=== PATIENT | male | born 1950 | race Caucasian/White ===

== ENCOUNTER 2024-08-14 02:17 | Emergency (ER) | payer BC, OTHER ==
[~2024-08-14] VITALS: Ht 162.6 cm; Wt 68.0 kg
[2024-08-14 02:36] VITALS: BP 156/74; PULSE 80; RESP 14; TEMP 98.4; O2SAT 92
[2024-08-14] MEDS: DexAMETHasone SOD PHOS 10MG/1ML VIAL INJ IM ONE (03:24)
--- NOTE | 2024-08-14 04:05 | DVH ---
CLINICAL INDICATION: 74 years old, Male; S/P FALL LOW BACK PAIN RADIATION LEFT LEG. TECHNIQUE: CT of the lumbar spine was performed without intravenous contrast. Sagittal and coronal re formatted images are provided. All CT scans at this medical facility are performed using dose modula tion techniques as appropriate to a performed exam including the following: Automated exposure contro l was utilized; adjustment of the MA and/or KV according to patient size; and use of iterative recons truction technique. COMPARISON: None CT Dose: CTDI volume is 32.6 mGy. Dose-length product is 1351. mGy*cm FINDINGS: There is levoscoliosis of the spine centered at L2-L3. There is a corpectomy cage L3-4 and ventral fu teri at L2-L4. There is no acute fracture. The vertebral bodies are normal in height. Multilevel inte rvertebral disc space narrowing and fusion of the posterior elements. There is no evidence of signifi cance spinal canal stenosis. Multilevel neural foraminal stenosis especially on the right at L4-L5 w here there is impingement of the exiting right L4 nerve root. There is moderate to severe right neura l foraminal stenosis L5-S1. There is a spinal stimulator noted. The prevertebral soft tissues are unremarkable. Paraspinal muscles are also within normal limits. Soft tissues swelling and stranding posterior to the coccyx. IMPRESSION: 1. No evidence of acute fracture in the lumbar spine. 2. Soft tissue swelling posterior to the coccyx.
[2024-08-14] MEDS ORDERED: METH4PAK PO (04:16)
--- NOTE | 2024-08-14 04:16 | ED.PDOC ---
Back pain HPI HPI Comments PT BIBA FOR FALL INJURY AT HOME YESTERDAY ACUTE ON CHRONIC LOWER BACK PAIN. PT STATED HE WAS STANDING, LEGS FELT WEAK, EXPERIENCED MECHANICAL FALL. PT STATED HE FELL ON HIS BOTTOM THEN ON HIS LEFT SIDE. PER PT, INTERNAL INFUSION PUMP FOR CHRONIC PAIN MANAGEMENT ON LLQ IN PLACE BUT NO RELIEF. DENIES LOSS OF BOWEL OR BLADDER CONTROL, SADDLE ANESTHESIA. 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 08/14/24 Information Source: Patient Mode of Arrival: EMS Past Medical History Past Medical History (Other): CHRONIC BACK PAIN Surgical History (Other): PAIN PUMP Family History Family History: Reviewed,noncontributory to illness Social History Smoker: Non-Smoker Alcohol: Denies ETOH Use Drugs: Denies Drug Use Constitutional: denies: chills, diaphoresis, fatigue, fever, malaise, sweats, weakness, others EENTM: denies: blurred vision, double vision, ear bleeding, ear discharge, ear drainage, ear pain, ear ringing, eye pain, eye redness, hearing loss, mouth pain, mouth swelling, nasal discharge, nose bleeding, nose congestion, nose pain, photophobia, tearing, throat pain, throat swelling, voice changes, others Respiratory: denies: cough, hemoptysis, orthopnea, SOB at rest, shortness of breath, SOB with excertion, stridor, wheezing, others Cardiovascular: denies: chest pain, dizzy spells, diaphoresis, Dyspnea on exertion, edema, irregular heart beat, left arm pain, lightheadedness, palpitations, PND, syncope, others Gastrointestinal: denies: abdomen distended, abdominal pain, blood streaked bowels, constipated, diarrhea, dysphagia, difficulty swallowing, hematemesis, melena, nausea, poor appetite, poor fluid intake, rectal bleeding, rectal pain, vomiting, others Genitourinary: denies: burning, dysuria, flank pain, frequency, hematuria, incontinence, penile discharge, penile sore, pain, testicle pain, testicle swelling, urgency, others Neurological: denies: dizziness, fainting, headache, left sided numbness, left sided weakness, numbness, paresthesia, pre-existing deficit, right sided numbness, right sided weakness, seizure, speech problems, tingling, tremors, weakness, others Musculoskeletal: reports: back pain; denies: gout, joint pain, joint swelling, muscle pain, muscle stiffness, neck pain, others Integumetry: denies: bruises, change in color, change in hair/nails, dryness, laceration, lesions, lumps, rash, wounds, others Allergic/Immunocompromised: denies: Difficulty Healing, Frequent Infections, Hives, Itching, others Hematologic/Lymphatic: denies: anemia, blood clots, easy bleeding, easy bruising, swollen glands, others Endocrine: denies: excessive hunger, excessive sweating, excessive thirst, excessive urination, flushing, intolerance to cold, intolerance to heat, unexplained weight gain, unexplained weight loss, others Psychiatric: denies: anxiety, bipolar disorder, depression, hopeless, panic disorder, schizophrenia, sleepless, suicidal, others Physical Exam General Appearance: No Apparent Distress, Normal HEENT: Pharynx Normal Neck: Full Range of Motion, Non-Tender Respiratory: Lungs Clear, No Respiratory Distress, Normal Breath Sounds Cardiovascular: No Murmur, Normal Peripheral Pulses, Regular Rate/Rhythm Breast Exam: Deferred Gastrointestinal: Non Tender, Soft Genitalia: Deferred Pelvic: Deferred Rectal: Deferred Extremities: Normal capillary refill, Normal inspection, Normal range of motion, Non-tender, No pedal edema Musculoskeletal : Location: Bilateral Extremity Location: Back (MODERATE TENDERNESS ALONG L1 THROUGH L5 PARASPINAL MUSCLES AND SPINE. NOTED CREPITUS OR STEP-OFFS. TENDERNESS OF THE COCCYX WITH TRACE EDEMA AND ECCHYMOSIS. NO FOOT DROP STRENGTH SENSORY AND MOTION INTACT POSITIVE PEDAL PULSE) Apperance: Normal Neurologic: Alert, processing lead II-XII nml as Tested, No Motor Deficits, Normal Affect, Normal Mood, No Sensory Deficits Cerebellar Function: Normal Reflexes: Normal Skin: Dry, Normal Color, Warm Lymphatic: No Adenopathy Was a procedure done? Was a procedure done?: No Back Pain Differential Dx Differential Diagnosis: Fracture, Musculoskeletal Pain X-Ray, Labs, Meds, VS Vital Signs Date Time Temp Pulse Resp B/P (MAP) Pulse Ox O2 Delivery O2 Flow Rate FiO2 08/14/24 02:36 98.4 80 14 156/74 (101) 92 08/14/24 02:36 92 Nasal Cannula 2.0 08/14/24 02:36 98.4 80 14 156/74 (101) 92 98.4 Current Medications Medications (Trade) Dose Ordered Sig/Leslie Route Start Time Stop Time Status Last Admin Dexamethasone Sodium Phosphate (Decadron Injection) 10 mg ONCE ONCE IM 08/14/24 03:00 08/14/24 03:01 DC 08/14/24 03:24 X-Ray, Labs, Meds, VS Comment CT LUMBAR SPINE SHOWS NO ACUTE FRACTURES, SUBLUXATIONS, OSSEOUS LESIONS NOTED CHRONIC FINDINGS. DOES SHOW EDEMA AROUND THE COCCYX. PATIENT WAS GIVEN DECADRON 10 MG IM REPORTS IMPROVEMENT IN PAIN REQUESTING DISCHARGE AT THIS TIME. SCRIPT MEDROL DOSEPAK ADVISED TO START IT IN A DAY OR 2 IF SYMPTOMS CONTINUE.FOLLOW-UP WITH PCP IN 1 TO 2 DAYS. TAKE MEDICATIONS PRESCRIBED. RETURN TO ED FOR ANY NEW OR WORSENING SYMPTOMS. Time of 1ST Reevaluation: 04:14 Reevaluation 1ST: Improved Patient Education/Counseling: Diagnosis, Treatment, Prognosis, Need For Follow Up Family Education/Counseling: No Family Present Departure 1 Departure Time of Disposition: 04:14 Impression: Primary Impression: Coccyx contusion Qualified Codes: S30.0XXA - Contusion of lower back and pelvis, initial encounter Disposition: 01 HOME / SELF CARE / HOMELESS Condition: Stable e-Prescriptions Methylprednisolone (Medrol Dosepak) 4 Mg Brandon 4 MG PO UD for 6 Days, #21 TAB UAD Prov: VISHNU ROJAS 08/14/24 Discharged With: Self Critical Care Note Critical Care Time?: No Stability Stability form required: No VISHNU ROJAS Aug 14, 2024 04:16
== END 2024-08-14 04:27 | disposition home or self-care (01) ==
LOC: EDBD 02:17 → ER 02:17
DX: S30.0XXA Contusion of lower back and pelvis, initial encounter (principal); G89.29 Other chronic pain; M54.50 Low back pain, unspecified; W18.39XA Other fall on same level, initial encounter; Y93.89 Activity, other specified; Y92.89 Other specified places as the place of occurrence of the external cause; Y99.8 Other external cause status
CPT/HCPCS: 72131; 96372; 99285; J1100